=== PATIENT | female | born 1995 ===

== ENCOUNTER 2017-03-28 14:17 | Emergency (ER) | payer OTHER ==
--- NOTE | 2017-03-28 14:24 | ED PDOC ---
Arrival/HPI - General Time Seen by Provider: 03/28/17 14:23 Historian: Patient - History of Present Illness Narrative History of Present Illness (Text): 03/28/17 14:23 21 y/o female, no significant pmh, nkda, LMP 02/05/2017, , c/o feeling nauseous on and off x 2 weeks with vaginal spotting x 4 days. Pt. stated that she is following up with her own obgyn about nausea/vomiting which she has tried zofran/reglan/diclygesis already with limited relief. Pt. stated that she started to have vaginal spotting about 3 days ago with very few drops with no sexual activities or strenuous exercise activities which her own obgyn is also awared as well. Pt. stated that she has follow up with her own obgyn tomorrow for the sonogram as well. Pt. stated that she is afraid she is dehydrated, no night sweat, no dizziness, no chest pain or shortness of breath, no fatigue or cold extremities, no other medical or psychological complaints. Pt. has no pelvic or abdominal pain. Past Medical History - Provider Review Nursing Documentation Reviewed: Yes Family/Social History - Physician Review Nursing Documentation Reviewed: Yes Family/Social History: Unknown Family HX Allergies/Home Meds Allergies/Adverse Reactions: Allergies No Known Allergies Allergy (Verified 03/28/17 14:20) Home Medications: Home Meds Medication Instructions Recorded Confirmed Ondansetron HCl [Zofran] 4 mg PO Q6 03/28/17 03/28/17 Promethazine [Phenergan Tab] 25 mg PO Q6 03/28/17 03/28/17 Review of Systems - Review of Systems Constitutional: absent: Fatigue, Fevers Eyes: absent: Vision Changes ENT: absent: Hearing Changes Respiratory: absent: Cough, Sputum Cardiovascular: absent: Chest Pain Gastrointestinal: Nausea, Vomiting. absent: Abdominal Pain Genitourinary Female: Vaginal Bleeding. absent: Dysuria, Frequency, Hematuria, Urine Output Changes, Vaginal Discharge Musculoskeletal: absent: Arthralgias, Myalgias Neurological: absent: Headache, Dizziness, Focal Weakness, Gait Changes, Speech Changes Physical Exam Vital Signs Reviewed: Yes Vital Signs Temp Pulse Resp BP Pulse Ox 03/28/17 16:21 68 18 122/71 98 03/28/17 14:21 98.9 F 76 16 124/77 99 Temperature: Afebrile Blood Pressure: Normal Pulse: Regular Respiratory Rate: Normal Appearance: Positive for: Well-Appearing, Non-Toxic, Comfortable Pain Distress: None Mental Status: Positive for: Alert and Oriented X 3 - Systems Exam Head: Present: Atraumatic, Normocephalic Pupils: Present: PERRL Extroacular Muscles: Present: EOMI Conjunctiva: Present: Normal Mouth: Present: Moist Mucous Membranes Neck: Present: Normal Range of Motion Respiratory/Chest: Present: Clear to Auscultation, Good Air Exchange. No: Respiratory Distress, Accessory Muscle Use Cardiovascular: Present: Regular Rate and Rhythm, Normal S1, S2. No: Murmurs Abdomen: Present: Normal Bowel Sounds. No: Tenderness, Distention, Peritoneal Signs, Rebound Genitourinary/Pelvic Exam: Present: Normal External Genitalia, Cervical os Closed, Other (Female Supervisor [employer]: ARI Bassett). No: Vaginal Discharge, Vaginal Bleeding, Vaginal Lesions, Adenexal Tenderness, Adenexal Mass, Cervical Motion Tendernes, Odor Back: Present: Normal Inspection Upper Extremity: Present: Normal Inspection. No: Cyanosis, Edema Lower Extremity: Present: Normal Inspection. No: Edema Neurological: Present: GCS=15, Speech Normal, Motor Func Grossly Intact, Gait Normal, Memory Normal Skin: Present: Warm, Dry, Normal Color. No: Rashes Psychiatric: Present: Alert, Oriented x 3, Normal Insight, Normal Concentration Medical Decision Making ED Course and Treatment: 03/28/17 14:42 -labs/ua/betahcg/type and screen -IVF/benadryl -transvaginal sonogram -observe and reassess 03/28/17 17:33 -sonogram show: 6 weeks and 3 days with FHR 121, 2.8cm ovarian cyst. -Labs show no acute findings -Beta HCG 96570 -Blood type: O+ -UA show +UTI -Labs and sonogram reviewed with the patient which she is awared of the ovarian cyst as her own obgyn awared as well. -Pt. feels well now after the IVF with benadryl, not nausea/vomiting, not fatigue or tired. -Discharge home with macrobid, stay hydrated, take benadryl or diclegis as needed, saltine cracker and marsha armin as needed, follow up with your own pmd and obgyn within 1-2 days, no sexual activities or excessive walking until you are clear by your own obgyn, bed and pelvis rest, return to the ER for any new or worsening signs or symptoms. - Lab Interpretations Lab Results: 03/28/17 14:44 03/28/17 14:44 Lab Results 03/28/17 16:25: Urine Color Yellow, Urine Appearance Sl cloudy, Urine pH 6.0, Ur Specific [place] >= 1.030, Urine Protein Trace H, Urine Glucose (UA) Negative , Urine Ketones 15 H, Urine Blood Moderate H, Urine Nitrate Negative, Urine Bilirubin Negative, Urine Urobilinogen 0.2, Ur Leukocyte Esterase Trace H, Urine RBC 2 - 5, Urine WBC 0 - 2, Ur Epithelial Cells 6 - 8, Urine Bacteria Few , Urine HCG, Qual Positive 03/28/17 14:59: Blood Type O POSITIVE, Antibody Screen Negative, BBK History Checked No verified bt 03/28/17 14:44: Beta HCG, Quant 56586.00 H 03/28/17 14:44: Sodium 137, Potassium 3.6, Chloride 99, Carbon Dioxide 23, Anion Gap 19, BUN 9, Creatinine 0.6, Est GFR ( Amer) > 60, Est GFR (Non- Af Amer) > 60, Random Glucose 79, Calcium 9.4, Total Bilirubin 0.5, AST 24, ALT 23, Alkaline Phosphatase 70, Total Protein 8.8 H, Albumin 4.6, Globulin 4.3, Albumin/Globulin Ratio 1.1 03/28/17 14:44: WBC 10.0, RBC 4.12, Hgb 12.0, Hct 36.2, MCV 87.9, MCH 29.1, MCHC 33.1, RDW 13.5, Plt Count 332, MPV 9.6, Gran % 70.3 H, Lymph % (Auto) 22.2 , [place] % (Auto) 4.9, Eos % (Auto) 2.4, Baso % (Auto) 0.2, Gran # 7.01 H, Lymph # 2.2, [place] # 0.5, Eos # 0.2, Baso # 0.02 I have reviewed the lab results: Yes Interpretation: Abnormal lab values (+UTI) - RAD Interpretation Radiology Orders: 03/28/17 14:36 OB TRANSVAGINAL [US] Stat Indication: Vaginal spotting for 4 days Comparison: Ob transvaginal ultrasound performed 03/14/17 Technique: Transvaginal pelvic ultrasound. Findings: The uterus measures approximately 8.3 x 5.9 x 5.7 cm. There is a single intrauterine fetus present. 3 mm yolk sac. The gestational sac measures 2.2 cm and is compatible with a gestational age of 6 weeks 5 days. The crown-rump length measures 0.5 cm and is compatible with a gestational age of 6 weeks 2 days. There is heart motion which measured 121 BPM. The right ovary measures 3.4 x 1.8 x 3.1 cm and contains 2.8 x 1.3 x 1.6 cm complex lesion. The left ovary measures 2.6 x 1.2 x 2.0. Blood flow was demonstrated to both ovaries. Impression: Live single intrauterine with estimated gestational age 6 weeks 3 days. heart rate 121 bpm. 2.8 cm complex right ovarian lesion, possibly hemorrhagic cyst ; recommend continued attention on follow-up. Advise an anomaly screen at 16-18 weeks gestational age Rug Touch Up Painter: Radiologist - Medication Orders Current Medication Orders: Discontinued Medications Diphenhydramine HCl (Benadryl) 25 mg IVP STAT STA Stop: 03/28/17 14:37 Last Admin: 03/28/17 17:06 Dose: 25 mg Sodium Chloride (Sodium Chloride 0.9%) 1,000 mls @ 999 mls/hr IV .Q1H1M STA Stop: 03/28/17 15:36 Last Admin: 03/28/17 17:06 Dose: 999 mls/hr - PA / ECHO TECHNICIAN / Resident Statement / has reviewed & agrees with the documentation as recorded. Disposition/Present on Arrival - Present on Arrival Any Indicators Present on Arrival: No History of DVT/PE: No History of Uncontrolled Diabetes: No Urinary Catheter: No History of Decub. Ulcer: No - Disposition Have Diagnosis and Disposition been Completed?: Yes Diagnosis: Nausea and vomiting during , UTI (urinary tract infection), Vaginal spotting Disposition: HOME/ ROUTINE Disposition Time: 17:36 Patient Plan: Discharge Condition: IMPROVED Additional Instructions: Discharge home with macrobid, stay hydrated, take benadryl or diclegis as needed , saltine cracker and marsha armin as needed, follow up with your own pmd and obgyn within 1-2 days, no sexual activities or excessive walking until you are clear by your own obgyn, bed and pelvis rest, return to the ER for any new or worsening signs or symptoms. Prescriptions: Nitrofurantoin Macrocrystals [Macrobid] 100 mg PO BID #14 cap Referrals: Lyle Zhang MD [Primary Care Provider] - Follow up with primary Wiliam Fish [Medical Doctor] - Follow up with primary Forms: WORK NOTE
[2017-03-28 14:26] VITALS: TEMP 98.9
[2017-03-28] MEDS ORDERED: Sodium Chloride 0.9% 1,000 ML IV STA (14:36)
[2017-03-28] MEDS ORDERED: DiphenhydrAMINE 50 mg/ml Inj IVP STA (14:36)
[2017-03-28 14:59] LABS: ADD MANUAL DIFF? NO
[2017-03-28 15:04] LABS: BASO # 0.02 K/mm3 (0.0-2.0); BASO % 0.2 % (0.0-3.0); EOS # 0.2 (0.0-0.7); EOS % 2.4 % (1.5-5.0); GRAN # 7.01 (1.4-6.5); GRAN % 70.3 % (50.0-68.0); HEMATOCRIT 36.2 % (36.0-48.0); LYMPH # 2.2 (1.2-3.4); LYMPH % 22.2 % (22.0-35.0); MEAN CELL VOLUME 87.9 fL (80.0-105.0); MEAN CORPUSCULAR HEMOGLOBIN 29.1 pg (25.0-35.0); MEAN CORPUSCULAR HGB CONC 33.1 g/dl (31.0-37.0); MEAN PLATELET VOLUME 9.6 fl (7.0-11.0); MONO # 0.5 (0.1-0.6); MONO % 4.9 % (1.0-6.0); PLATELET COUNT 332 10^3/uL (120.0-450.0); RED CELL DISTRIBUTION WIDTH 13.5 % (11.5-14.5)
[2017-03-28 15:19] LABS: ALB/GLOB RATIO 1.1 (1.1-1.8); ALKALINE PHOSPHATASE 70 U/L (38-133); ALT/SGPT 23 U/L (7-56); AST/SGOT 24 U/L (15-39); BILIRUBIN,TOTAL 0.5 mg/dL (0.2-1.3); BLOOD UREA NITROGEN 9 mg/dL (7-21); CALCIUM 9.4 mg/dL (8.4-10.5); CARBON DIOXIDE 23 mmol/L (21-33); GFR AFRICAN-AMERICAN > 60; GLUCOSE,RANDOM 79 mg/dL (70-110); POTASSIUM 3.6 mmol/L (3.6-5.0); SODIUM 137 mmol/L (132-148); TOTAL PROTEIN 8.8 g/dL (5.8-8.3)
[2017-03-28 15:29] LABS: CHLORIDE 99 mmol/L (98-107)
[2017-03-28 16:45] LABS: URINE BILIRUBIN NEGATIVE (NEGATIVE); URINE BLOOD MODERATE (NEGATIVE); URINE GLUCOSE (UA) NEGATIVE (NEGATIVE); URINE KETONE 15 mg/dL (NEGATIVE); URINE LEUKOCYTE ESTERASE TRACE Leu/uL (NEGATIVE); URINE PROTEIN TRACE mg/dL (<30 mg/dL); URINE UROBILINOGEN 0.2 E.U./dL (<1 E.U./dL)
[2017-03-28 16:48] LABS: URINE APPEARANCE SL CLOUDY (CLEAR); URINE COLOR YELLOW (YELLOW)
[2017-03-28 16:55] LABS: URINE BACTERIA FEW (NEG); URINE WBC 0 - 2 /hpf (0-6)
--- NOTE | 2017-03-28 17:28 | US ---
Indication: Vaginal spotting for 4 days Comparison: Ob transvaginal ultrasound performed 03/14/17 Technique: Transvaginal pelvic ultrasound. Findings: The uterus measures approximately 8.3 x 5.9 x 5.7 cm. There is a single intrauterine fetus present. 3 mm yolk sac. The gestational sac measures 2.2 cm and is compatible with a gestational age of 6 weeks 5 days. The crown-rump length measures 0.5 cm and is compatible with a gestational age of 6 weeks 2 days. There is heart motion which measured 121 BPM. The right ovary measures 3.4 x 1.8 x 3.1 cm and contains 2.8 x 1.3 x 1.6 cm complex lesion. The left ovary measures 2.6 x 1.2 x 2.0. Blood flow was demonstrated to both ovaries. Impression: Live single intrauterine with estimated gestational age 6 weeks 3 days. heart rate 121 bpm. 2.8 cm complex right ovarian lesion, possibly hemorrhagic cyst ; recommend continued attention on follow-up. Advise an anomaly screen at 16-18 weeks gestational age
[2017-03-28 23:33] VITALS: BP 122/73; PULSE 72; RESP 17; O2SAT 100
== END 2017-03-28 19:45 | disposition home or self-care (01) ==
LOC: ED 14:17
DX: O26.891 Other specified pregnancy related conditions, first trimester (principal); R11.2 Nausea with vomiting, unspecified; O23.41 Unspecified infection of urinary tract in pregnancy, first trimester; Z3A.01 Less than 8 weeks gestation of pregnancy
CPT/HCPCS: 76817; 80053; 81001; 84702; 84703; 85025; 86850; 86900; 87086; 96374; 99284; J1200; J7040

== ENCOUNTER 2017-04-02 20:45 | Emergency (ER) | payer OTHER ==
[2017-04-02 21:58] VITALS: BMI 32.1
[2017-04-02 22:01] VITALS: O2SAT 100
[2017-04-02] MEDS ORDERED: Sodium Chloride 0.9% 1,000 ML IV STA (22:34)
[2017-04-02 22:35] LABS: URINE BILIRUBIN NEGATIVE (NEGATIVE); URINE BLOOD SMALL (NEGATIVE); URINE GLUCOSE (UA) NEGATIVE (NEGATIVE); URINE KETONE NEGATIVE (NEGATIVE); URINE LEUKOCYTE ESTERASE TRACE Leu/uL (NEGATIVE); URINE PROTEIN TRACE mg/dL (<30 mg/dL); URINE UROBILINOGEN 0.2 E.U./dL (<1 E.U./dL)
[2017-04-02 22:40] LABS: URINE APPEARANCE CLEAR (CLEAR); URINE COLOR YELLOW (YELLOW)
[2017-04-02 22:56] LABS: ADD MANUAL DIFF? NO
[2017-04-02 23:04] LABS: URINE AMORPHOUS SEDIMENT FEW; URINE BACTERIA MANY (NEG)
[2017-04-02 23:11] LABS: ALB/GLOB RATIO 1.1 (1.1-1.8); ALKALINE PHOSPHATASE 67 U/L (38-133); ALT/SGPT 26 U/L (7-56); AST/SGOT 20 U/L (15-39); BILIRUBIN,TOTAL 0.5 mg/dL (0.2-1.3); BLOOD UREA NITROGEN 14 mg/dL (7-21); CALCIUM 8.9 mg/dL (8.4-10.5); CARBON DIOXIDE 25 mmol/L (21-33); CHLORIDE 101 mmol/L (98-107); GFR AFRICAN-AMERICAN > 60; GLUCOSE,RANDOM 78 mg/dL (70-110); POTASSIUM 3.7 mmol/L (3.6-5.0); SODIUM 135 mmol/L (132-148); TOTAL PROTEIN 7.8 g/dL (5.8-8.3)
[2017-04-02 23:13] LABS: BASO # 0.03 K/mm3 (0.0-2.0); BASO % 0.2 % (0.0-3.0); EOS # 0.4 (0.0-0.7); EOS % 3.4 % (1.5-5.0); GRAN # 8.48 (1.4-6.5); GRAN % 67.6 % (50.0-68.0); HEMATOCRIT 33.6 % (36.0-48.0); LYMPH # 2.9 (1.2-3.4); LYMPH % 23.2 % (22.0-35.0); MEAN CELL VOLUME 86.8 fL (80.0-105.0); MEAN CORPUSCULAR HEMOGLOBIN 29.2 pg (25.0-35.0); MEAN CORPUSCULAR HGB CONC 33.6 g/dl (31.0-37.0); MEAN PLATELET VOLUME 9.9 fl (7.0-11.0); MONO # 0.7 (0.1-0.6); MONO % 5.6 % (1.0-6.0); PLATELET COUNT 307 10^3/uL (120.0-450.0); RED CELL DISTRIBUTION WIDTH 13.4 % (11.5-14.5); WHITE BLOOD COUNT 12.6 10^3/ul (4.5-11.0)
[2017-04-03] MEDS ORDERED: cefTRIAXone 1 gm 1 GM/100 ML BAG IVPB STA (00:44)
[2017-04-03 01:01] VITALS: BP 115/73; PULSE 73; RESP 16; TEMP 98.9
--- NOTE | 2017-04-03 01:35 | ED PDOC ---
Arrival/HPI - General Chief Complaint: GI Problem Time Seen by Provider: 04/02/17 22:11 Historian: Patient - History of Present Illness Narrative History of Present Illness (Text): 21-year-old female presents today with concerns for the inability to take her antibiotic for her urinary tract infection. Patient states she was recently diagnosed with a urinary tract infection while in the emergency room. Patient states every time she takes the nitrofurantoin she vomits. Patient states she has been dealing with issues with vomiting after eating since the onset of this . Patient states she is being followed by her ironworker wire fence erector and has tried Zofran and Reglan and diclegis without resolution of Nausea and vomiting. Patient denies abdominal pain. No chest pain or shortness of breath. She denies any urinary symptoms at present time. Denies vaginal discharge. Past Medical History - Provider Review Nursing Documentation Reviewed: Yes - Travel History Have you recently traveled outside [place] w/in the past 3 mons?: No - Infectious Disease Hx of Infectious Diseases: None - Cardiac Hx Cardiac Disorders: No - Pulmonary Hx Respiratory Disorders: No - Neurological Hx Neurological Disorder: No - HEENT Hx HEENT Disorder: No - Renal Hx Renal Disorder: No - Endocrine/Metabolic Hx Endocrine Disorders: No - Hematological/Oncological Other/Comment: THROMBOPHELIA - Integumentary Hx Dermatological Disorder: No - Musculoskeletal/Rheumatological Hx Musculoskeletal Disorders: No - Gastrointestinal Hx Gastrointestinal Disorders: No - Genitourinary/Gynecological Hx Genitourinary Disorders: No - Psychiatric Hx Psychophysiologic Disorder: No Hx Substance Use: No - Surgical History Other/Comment: POST DELIVERY EVACUATION OF HEMATOMA - Anesthesia Hx Anesthesia: Yes Hx Anesthesia Reactions: No Hx Malignant Hyperthermia: No Family/Social History - Physician Review Nursing Documentation Reviewed: Yes Family/Social History: Unknown Family HX Smoking Status: Never Smoked Hx Alcohol Use: No Hx Substance Use: No Allergies/Home Meds Allergies/Adverse Reactions: Allergies No Known Allergies Allergy (Verified 03/28/17 14:20) Home Medications: Home Meds Medication Instructions Recorded Confirmed Ondansetron HCl [Zofran] 4 mg PO Q6 03/28/17 03/28/17 Promethazine [Phenergan Tab] 25 mg PO Q6 03/28/17 03/28/17 Review of Systems - Review of Systems Constitutional: absent: Fatigue, Fevers Respiratory: absent: SOB, Cough Cardiovascular: absent: Chest Pain, Palpitations Gastrointestinal: Vomiting. absent: Abdominal Pain, Constipation, Diarrhea Genitourinary Female: absent: Dysuria, Frequency, Hematuria, Vaginal Bleeding, Vaginal Discharge Musculoskeletal: absent: Arthralgias, Back Pain, Neck Pain Skin: absent: Rash, Pruritis Neurological: absent: Headache, Dizziness Physical Exam Vital Signs Reviewed: Yes Vital Signs Temp Pulse Resp BP Pulse Ox 04/03/17 01:00 98.9 F 73 16 115/73 100 04/02/17 22:01 98.1 F 80 18 124/79 100 Temperature: Afebrile Blood Pressure: Normal Pulse: Regular Respiratory Rate: Normal Appearance: Positive for: Well-Appearing, Non-Toxic, Comfortable Pain Distress: None Mental Status: Positive for: Alert and Oriented X 3 - Systems Exam Head: Present: Atraumatic Mouth: Present: Moist Mucous Membranes Neck: Present: Normal Range of Motion Respiratory/Chest: Present: Clear to Auscultation, Good Air Exchange. No: Respiratory Distress, Accessory Muscle Use Cardiovascular: Present: Regular Rate and Rhythm, Normal S1, S2. No: Murmurs Abdomen: No: Tenderness Upper Extremity: Present: Normal ROM Lower Extremity: Present: Normal ROM Neurological: Present: GCS=15, Speech Normal Skin: Present: Warm, Dry, Normal Color. No: Rashes Psychiatric: Present: Alert, Oriented x 3 Medical Decision Making ED Course and Treatment: 04/03/17 03:19 21-year-old female who presents with nausea and vomiting during requesting IV fluids CBC: White blood cell count 12.6 CMP within normal limits Urinalysis trace leukocytes, 5-10 red blood cells, 2-5 white blood cells, 6-8 epithelial cells Urine culture pending Patient was given a liter of fluid when patient was seen in the emergency room on previous visit urine culture showed no growth. Repeat urine at this time shows increasing infection with many bacteria. We'll give a dose of Rocephin IV and have the patient take Keflex twice a day. I have stressed the importance of follow-up with the PROGRAM ADVISOR within the next 2 days advised immediate return if symptoms worsen persist or if new concerning symptoms develop. Patient verbalizes understanding of discharge instructions and need for immediate followup. all aspects of this case were discussed the attending of record. Impression: Urinary tract infection, nausea and vomiting Discontinue nitrofurantoin Keflex twice daily 10 days Increase fluids Follow-up with the ironworker wire fence erector within the next 2 days Return if symptoms worsen persist or if new concerning symptoms develop - Lab Interpretations Lab Results: 04/02/17 22:50 04/02/17 22:50 Lab Results 04/02/17 22:50: WBC 12.6 H D, RBC 3.87, Hgb 11.3 L, Hct 33.6 L, MCV 86.8, MCH 29.2, MCHC 33.6, RDW 13.4, Plt Count 307, MPV 9.9, Gran % 67.6, Lymph % (Auto) 23.2, [place] % (Auto) 5.6, Eos % (Auto) 3.4, Baso % (Auto) 0.2, Gran # 8.48 H, Lymph # 2.9, [place] # 0.7 H, Eos # 0.4, Baso # 0.03 04/02/17 22:50: Sodium 135, Potassium 3.7, Chloride 101, Carbon Dioxide 25, Anion Gap 13, BUN 14, Creatinine 0.6, Est GFR ( Amer) > 60, Est GFR (Non- Af Amer) > 60, Random Glucose 78, Calcium 8.9, Total Bilirubin 0.5, AST 20, ALT 26, Alkaline Phosphatase 67, Total Protein 7.8, Albumin 4.1, Globulin 3.7, Albumin/Globulin Ratio 1.1 04/02/17 22:25: Urine Color Yellow, Urine Appearance Clear, Urine pH 6.0, Ur Specific [place] >= 1.030, Urine Protein Trace H, Urine Glucose (UA) Negative, Urine Ketones Negative, Urine Blood Small H, Urine Nitrate Negative, Urine Bilirubin Negative, Urine Urobilinogen 0.2, Ur Leukocyte Esterase Trace H, Urine RBC 5 - 10, Urine WBC 2 - 5, Ur Epithelial Cells 6 - 8, Amorphous Sediment Few, Urine Bacteria Many, Urine Other [place]yeast - Medication Orders Current Medication Orders: Discontinued Medications Sodium Chloride (Sodium Chloride 0.9%) 1,000 mls @ 999 mls/hr IV .Q1H1M STA Stop: 04/02/17 23:34 Last Admin: 04/02/17 22:50 Dose: 999 mls/hr Ceftriaxone Sodium (Rocephin 1 Gram Ivpb) 1 gm in 100 mls @ 200 mls/hr IVPB STAT STA PRN Reason: Protocol Stop: 04/03/17 01:13 Last Admin: 04/03/17 00:51 Dose: 200 mls/hr Disposition/Present on Arrival - Present on Arrival Any Indicators Present on Arrival: No History of DVT/PE: No History of Uncontrolled Diabetes: No Urinary Catheter: No History of Decub. Ulcer: No History Surgical Site Infection Following: None - Disposition Have Diagnosis and Disposition been Completed?: Yes Diagnosis: Urinary tract infection Disposition: HOME/ ROUTINE Disposition Time: 01:00 Patient Plan: Discharge Condition: GOOD Discharge Instructions (ExitCare): Urinary Tract Infection in (ED) Additional Instructions: discontinue nitrofurantoin keflex; twice daily x 10 days increase fluids follow up with the PROGRAM ADVISOR within the next 2 days. return if symptoms worsen,persist or if new symptoms. Prescriptions: Cephalexin [Keflex] 500 mg PO BID #20 capsule Referrals: Lyle Zhang MD [Primary Care Provider] - Follow up with primary Julissa Ceja MD [Staff Provider] - Follow up with primary Forms: WORK NOTE
== END 2017-04-03 01:55 | disposition home or self-care (01) ==
LOC: ED 20:45
DX: O23.40 Unspecified infection of urinary tract in pregnancy, unspecified trimester (principal); Z3A.00 Weeks of gestation of pregnancy not specified
CPT/HCPCS: 80053; 81001; 85025; 87086; 96361; 96365; 99284; J0696; J7040